=== PATIENT | male | born 1945 | race Caucasian/White ===

== ENCOUNTER 2017-07-18 07:43 | Day surgery (SDC) | payer MEDICARE, BC ==
[~2017-07-18 07:43] MED LIST: LIDOCAINE HCL 1% MPF SOL ONE; PROPOFOL 500 MG/50 ML EMU IV ONE
[2017-07-18 10:08] VITALS: TEMP 98.1
[2017-07-18 10:30] VITALS: BP 142/87; PULSE 68; RESP 20; O2SAT 96
== END 2017-07-18 10:39 | disposition home or self-care (01) | DRG 951 ==
LOC: SURG 07:43
PROVIDERS: ATTEND Surgery
DX: Z12.11 Encounter for screening for malignant neoplasm of colon (principal); K57.30 Diverticulosis of large intestine without perforation or abscess without bleeding; N40.2 Nodular prostate without lower urinary tract symptoms; Z83.71 Family history of colonic polyps; Z86.010 Personal history of colon polyps; K64.8 Other hemorrhoids
CPT/HCPCS: J2001; J2704